=== PATIENT | female | born 1995 | race Caucasian/White ===

== ENCOUNTER 2024-10-25 15:07 | Observation (INO) | payer OTHER, SELFPAY ==
--- NOTE | ~2024-10-25 | US_ITS ---
EXAMINATION: US OB limited DATE: 10/25/2024 16:43 INDICATION: Assess cervical length placenta during second trimester of . TECHNIQUE: Real-time ultrasound of the pelvis was performed. The interpreting radiologist was not pre sent for the study. COMPARISON: 10/17/2024 FINDINGS: There is a single living fetus in vertex presentation. The placenta is posterior and not low-lying. There is a subamniotic bulge of the central portion of the placenta which measures approximately 5.8 x 7.9 cm in diameter and 2.8 cm in thickness which appears heterogeneously hypoechoic and anechoic. T here is an anechoic likely venous mcwilliams along the deep margin of the hypoechoic region. heart ra te is 144 beats per minute (bpm). The amniotic fluid volume is subjectively normal with normal deepes t vertical pocket measurement of 5.5 cm. Normal cervical length of 4.1 cm with no funneling. IMPRESSION: 1. Single living fetus in vertex presentation with heart rate of 144 bpm. 2. 5.8 x 7.9 x 2.8 cm bulge with heterogeneous echogenicity along the amniotic side of the central pl acenta suspicious for a subamniotic hematoma. Reviewed, dictated and finalized at location A. [facility] IMPRESSION: 1. Single living fetus in vertex presentation with heart rate of 144 bpm . 2. 5.8 x 7.9 x 2.8 cm bulge with heterogeneous echogenicity along the amniotic side of the central placenta suspicious for a subamniotic hematoma.
--- NOTE | 2024-10-25 15:07 | OBADM ---
This patient, Shani Degroot, admitted to the OB room OB Post 113 for observation. Patient/family oriented to hospital policies and general routines including ID bracelet, bed and alarms, visiting hours, pain management, procedures, bathroom and other care routines, personal items, smoking policy, room service/diet, and visiting hours. Patient/Family are encouraged to report perceived risks to care and to ask questions if they do not understand what they are told or what they should do.
--- NOTE | 2024-10-25 15:15 | PC.NURSE ---
Doppler of FHT's 140's and regular.
--- OUTSIDE RECORDS SUMMARY | 2024-10-25 15:17 | XMS_ITS | Clinical Summary ---
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 Appears to be a keloid-like lesion. Skin lesion of right lower extremity 07/22/2022 Assessment & Plan (07/22/2022 10:36 AM MASONRY INSTALLER): Referred to Plastic surgeon for further evaluation. Appears to be a keloid-like lesion. Gastroesophageal reflux disease without esophagi tis 10/30/2021 Assessment & Plan (10/30/2021 3:04 PM MASONRY INSTALLER): Discussed dx gerd and treatment including diet and medications. Handout given via AVS. Will start *omeprazole daily. Discussed will have her take it for 4-8 weeks and then trial him off of it. Follow up in 4 weeks, or sooner should symptoms worsen Immunizations Name Administration Dates Next Due Influenza, Unspecified 07/22/2022(Deferr ed: Patient Refused),10/22/2021(Deferred: Patient Refused),06/12/2021(Deferred: Patient Refused) Surgical History Surgery Date Site/Laterality Comments ANKLE SURGERY 09/12/2016 - 09/11/2017 Right Social History Tobacco Use Types Packs/Day Years Used Date Smoking Tobacco: Never Smokeless Tobacco: Never PHQ-2 Answer Date Recorded PHQ-2 Total Score (If total score is 3 or more points, staff should administer the PHQ-9) 0 07/22/2022 Personal Safety Answer Date Recorded Getting School Help Needed Not on file 08/27 Comments Unknown Sex and Gender Information Value Date Recorded Sex Assigned at Not on file Legal Sex Female 8:55 AM MASONRY INSTALLER Gender Identity Not on file Sexual Orientation Not on file Obstetrics History Last Filed Vital Signs Vital Sign Reading Time Taken Comments Blood Pressure 128/79 07/22/2022 10:09 AM MASONRY INSTALLER Pulse 74 07/22/2022 10:09 AM MASONRY INSTALLER Temperature 36.5 C (97.7 F) 07/22/2022 10:09 AM MASONRY INSTALLER Respiratory Rate 14 07/22/2022 10:09 AM MASONRY INSTALLER Oxygen Saturation 98% 07/22/2022 10:09 AM MASONRY INSTALLER Inhaled Oxygen Concentration - - Weight 79.7 kg (175 lb 9.6 oz) 07/22/2022 10:09 AM MASONRY INSTALLER Height 165.7 cm (5' 5.24 ) 07/22/2022 10:[address] Body Mass Index 29.01 07/22/2022 10:09 AM MASONRY INSTALLER Plan of Treatment Health Maintenance Due Date Last Done Comments Cervical Cancer Screening 1994 Hepatitis C Screening 1994 DTaP/Tdap/Td Vaccine (1 - Tdap) 2005 Varicella Vaccines (1 of 2 - 13+ 2-dose series) 2007 Hepatitis B Screening 2012 Regular Well Visit/Exam 18-64 2012 Depression Screening 07/22/2023 07/22/2022, 10/22/2021 Covid-19 Vaccine (3 - 2023-2 5 season) 2024 03/05/2021, 02/02/2021 Influenza Vaccine (#1) 2024 HPV Vaccines Aged Out No longer eligi ble based on patient's age to complete this topic Pneumococcal vaccine <65 Aged Out No longer eligible based on patient's age to complete this topic Insurance Exposed Vocals OOS [facility] CHOICE PLUS [facility] HMO/PPO Address: [address] [address] [place] [address] Care Teams Manager [employer] Relationship Specialty Start Date End Date Miracle Billingsley NP PCP - General Family Medicine 10/22/21 Raiza Pozo DO [address] [facility] [place] [address] Consulting Physician Family Medicine 07/23/22
--- OUTSIDE RECORDS SUMMARY | 2024-10-25 15:17 | XMS_ITS | Referral Summary ---
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 Appears to be a keloid-like lesion. Skin lesion of right lower extremity 07/22/2022 Assessment & Plan (07/22/2022 10:36 AM SLAT PICKLER): Referred to Plastic surgeon for further evaluation. Appears to be a keloid-like lesion. Gastroesophageal reflux disease without esophagi tis 10/30/2021 Assessment & Plan (10/30/2021 3:04 PM SLAT PICKLER): Discussed dx gerd and treatment including diet and medications. Handout given via AVS. Will start *omeprazole daily. Discussed will have her take it for 4-8 weeks and then trial him off of it. Follow up in 4 weeks, or sooner should symptoms worsen Immunizations Name Administration Dates Next Due Influenza, Unspecified 07/22/2022(Deferr ed: Patient Refused),10/22/2021(Deferred: Patient Refused),06/12/2021(Deferred: Patient Refused) Social History Tobacco Use Types Packs/Day Years [...] on file Legal Sex Female 8:55 AM SLAT PICKLER Gender Identity Not on file Sexual Orientation Not on file Last Filed Vital Signs Vital Sign Reading Time Taken Comments Blood Pressure 128/79 07/22/2022 10:09 AM SLAT PICKLER Pulse 74 07/22/2022 10:09 AM SLAT PICKLER Temperature 36.5 C (97.7 F) 07/22/2022 10:09 AM SLAT PICKLER Respiratory Rate 14 07/22/2022 10:09 AM SLAT PICKLER Oxygen Saturation 98% 07/22/2022 10:09 AM SLAT PICKLER Inhaled Oxygen Concentration - - Weight 79.7 kg (175 lb 9.6 oz) 07/22/2022 10:09 AM SLAT PICKLER Height 165.7 cm (5' 5.24 ) 07/22/2022 10:[address] Body Mass Index 29.01 07/22/2022 10:09 AM SLAT PICKLER Plan of Treatment Not on file Insurance [employer] [place] [id number] Care Teams Landscape Designer Relationship Specialty Start Date End Date Miracle Billingsley NP PCP - General Family Medicine 10/22/21 Raiaz Pozo DO [address] [facility] [place] [address] Consulting Physician Family Medicine 07/23/22
[2024-10-25 15:50] VITALS: BP 118/66; PULSE 79
[2024-10-25 16:07] LABS: Add Urine Microscopic? YES; Appearance Urine Clear (Clear); Bacteria Urine None Seen /hpf; Bilirubin Urine Negative (Negative); Blood Urine Negative (Negative); Color Urine Yellow (Yellow); Glucose Urine UA Negative (Negative); Ketones Urine Negative (Negative); Leukocyte Esterase Ur Trace LEU/UL (Negative); Need Manual Microscopic Reviewed; Nitrate Urine Negative (Negative); Non Pathogenic Casts 0-2; Protein Urine Negative (Negative); RBC Urine 0-2 /hpf (0-2); Specific Grav Ur 1.004 (1.001-1.035); Squamous Epithelial Cell Urine None Seen /hpf (Few); Urobilinogen Urine 0.2 mg/dL (<2.0); WBC Urine 0-5 /hpf (0-3); pH Urine 7.5 (5.0-9.0)
--- NOTE | 2024-10-25 17:30 | PC.NURSE ---
Dr Mcgraw notified of US results. Orders to put baby on monitor for about [address] Mcgraw down to patient room to discuss US results to patient.
--- NOTE | 2024-10-25 17:37 | PC.NURSE ---
FHT's on tracing 140's with mod variability. Tracing reviewed by Dr Mcgraw.
--- NOTE | 2024-10-26 07:46 | PM.OBTRLD ---
OB - Triage/Final Diagnosis Visit Information Comments/Additional reasons for admission: I have assessed the risk for this patient, Shani Degroot, and determined that she would benefit from observation care. Evaluation Laboratory results: Laboratory Tests 10/25/24 15:45 Urine Color Yellow Urine Appearance Clear Urine pH 7.5 Ur Specific [place] 1.004 Urine Protein Negative Urine Glucose (UA) Negative Urine Ketones Negative Ur Blood (Man) Negative Urine Nitrate Negative Urine Bilirubin Negative Urine Urobilinogen 0.2 Ur Leukocyte Esterase Trace H Add Ur Microanalysis Reviewed Urine RBC 0-2 Urine WBC 0-5 Ur Squamous Epith Cells None seen Urine Bacteria None seen Urine Casts 0-2 Vital signs: Vital Signs - 24 hr 10/25/24 15:50 Pulse Rate 79 Blood Pressure 118/66 Final Diagnosis (1) Vaginal bleeding: Code(s): N93.9 - Abnormal uterine and vaginal bleeding, unspecified Status: Acute
== END 2024-10-25 17:45 | disposition home or self-care (01) ==
PROVIDERS: Admitting Provider Obstetrics & Gynecology; Visit Provider Obstetrics & Gynecology
DX: O26.892 Other specified pregnancy related conditions, second trimester (principal); N93.9 Abnormal uterine and vaginal bleeding, unspecified; Z3A.22 22 weeks gestation of pregnancy
CPT/HCPCS: 76815; 81001; 87086; G0378; G0379